=== PATIENT | female | born 1990 | race American Indian/Alaskan Native ===

== ENCOUNTER 2017-12-28 12:45 | Emergency (ER) | payer SELFPAY ==
[2017-12-28 12:52] VITALS: BP 123/76
[2017-12-28] MEDS ORDERED: MOTRIN PO ONE (13:52)
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
== END 2017-12-28 16:20 | disposition home or self-care (01) ==
LOC: ED 12:45
DX: M54.5 Low back pain (principal); M54.2 Cervicalgia
CPT/HCPCS: 72040; 72100; 99283

== ENCOUNTER 2018-05-09 12:12 | Emergency (ER) | payer SELFPAY ==
[2018-05-09 12:56] VITALS: BP 114/67
--- NOTE | 2018-05-09 13:27 | Emergency Department Report ---
ED Female HPI - General Chief complaint: Urogenital-Female Stated complaint: BLOOD IN URINE Time Seen by Provider: 05/09/18 13:24 Source: patient Mode of arrival: Ambulatory Limitations: No Limitations - History of Present Illness Initial comments: This is a 28-year-old patient here complaining that when she urinates she states she sees blood and it pringle when I ask her she said when she wipes there is some blood on the tissue and she is having some burning and this has been going on for 2 weeks and when she wipes to see blood has been going on for 3 days. Denies any back pain. Denies any fever or chills. Denies any nausea or vomiting. Last menstrual cycle was 04/23/2018. She denies any abdominal pain. MD Complaint: dysuria Onset/Timin -: week(s) Severity scale (0 -10): 0 Are you Now?: No Last Menstrual Period: 04/23/18 EDC: 01/28/19 Associated Symptoms: dysuria, hematuria. denies: vaginal discharge, vaginal bleeding, abdominal pain, nausea/vomiting, fever/chills, headaches, loss of appetite, rash, seizure, shortness of breath, syncope, weakness - Related Data Sexually active: No Previous Rx's Medication Instructions Recorded Last Taken Type Cyclobenzaprine [Flexeril] 10 mg PO TID PRN #10 tablet 12/28/17 Unknown Rx Ibuprofen [Motrin] 600 mg PO Q8H PRN #30 tablet 12/28/17 Unknown Rx Nitrofurantoin Monohyd/M-Cryst 100 mg PO Q12H 7 Days #14 capsule 05/09/18 Unknown Rx [Macrobid 100 mg Capsule] Phenazopyridine [Pyridium] 100 mg PO TID PRN #9 tab 05/09/18 Unknown Rx Allergies Allergy/AdvReac Type Severity Reaction Status Date / Time No Known Allergies Allergy Verified 05/09/18 12:52 ED Review of Systems ROS: Stated complaint: BLOOD IN URINE Other details as noted in HPI Constitutional: denies: chills, fever Respiratory: denies: cough, orthopnea, shortness of breath, SOB with exertion, stridor, wheezing Cardiovascular: denies: chest pain, palpitations, dyspnea on exertion, edema, syncope Gastrointestinal: denies: abdominal pain, nausea, vomiting, diarrhea, constipation, hematemesis, melena, hematochezia Genitourinary: dysuria, hematuria. denies: urgency, frequency, discharge, abnormal menses, dyspareunia Musculoskeletal: denies: back pain, joint swelling, arthralgia Skin: denies: rash, lesions Neurological: denies: headache, weakness ED Past Medical Hx - Past Medical History Previous Medical History?: No - Surgical History Past Surgical History?: No - Family History Family history: hypertension - Social History Smoking Status: Never Smoker Substance Use Type: None - Medications Home Medications: Home Medications Medication Instructions Recorded Confirmed Last Taken Type Cyclobenzaprine [Flexeril] 10 mg PO TID PRN #10 tablet 12/28/17 Unknown Rx Ibuprofen [Motrin] 600 mg PO Q8H PRN #30 tablet 12/28/17 Unknown Rx Nitrofurantoin Monohyd/M-Cryst 100 mg PO Q12H 7 Days #14 capsule 05/09/18 Unknown Rx [Macrobid 100 mg Capsule] Phenazopyridine [Pyridium] 100 mg PO TID PRN #9 tab 05/09/18 Unknown Rx ED Physical Exam - General Limitations: No Limitations General appearance: alert, in no apparent distress - Head Head exam: Present: atraumatic, normocephalic, normal inspection - Eye Eye exam: Present: normal appearance, PERRL, EOMI Pupils: Present: normal accommodation - ENT ENT exam: Present: normal exam, normal orophraynx, mucous membranes moist - Neck Neck exam: Present: normal inspection, full ROM. Absent: tenderness, lymphadenopathy - Respiratory Respiratory exam: Present: normal lung sounds bilaterally. Absent: respiratory distress, chest wall tenderness, accessory muscle use - Cardiovascular Cardiovascular Exam: Present: regular rate, normal rhythm, normal heart sounds. Absent: systolic murmur, diastolic murmur - GI/Abdominal GI/Abdominal exam: Present: soft, normal bowel sounds. Absent: distended, tenderness, guarding, rebound, rigid, mass, bruit, pulsatile mass - Extremities Exam Extremities exam: Present: normal inspection, full ROM, normal capillary refill , other (no clubbing, cyanosis or edema. +2 pulses to all extremities and no neurovascular compromise). Absent: tenderness, pedal edema, joint swelling, calf tenderness - Back Exam Back exam: Present: normal inspection, full ROM. Absent: tenderness, CVA tenderness (R), CVA tenderness (L), muscle spasm, paraspinal tenderness, vertebral tenderness, rash noted - Neurological Exam Neurological exam: Present: alert, oriented X3 - Psychiatric Psychiatric exam: Present: normal affect, normal mood - Skin Skin exam: Present: warm, dry, intact, normal color. Absent: rash ED Course Vital Signs 05/09/18 12:52 Temperature 98.1 F Pulse Rate 98 H Respiratory 16 Rate Blood Pressure 114/67 O2 Sat by Pulse 98 Oximetry - Reevaluation(s) Reevaluation #1: 05/09/18 14:02 Patient is stable and awaiting in urinalysis results. Reevaluation #2: 05/09/18 15:56 05/09/18 15:56 Patient Rocephin 1 g IM in the emergency room for acute cystitis with hematuria. She had no adverse reaction 05/09/18 15:56 ED Medical Decision Making - Lab Data Lab Results 05/09/18 Range/Units 14:20 Urine Color Yellow (Yellow) Urine Turbidity Clear (Clear) Urine pH 6.0 (5.0-7.0) Ur Specific [place] 1.017 (1.003-1.030) Urine Protein 30 mg/dl (Negative) mg/dL Urine Glucose (UA) Neg (Negative) mg/dL Urine Ketones Neg (Negative) mg/dL Urine Blood Mod (Negative) Urine Nitrite Neg (Negative) Urine Bilirubin Neg (Negative) Urine Urobilinogen 4.0 (<2.0) mg/dL Ur Leukocyte Esterase Lg (Negative) Urine WBC (Auto) > 182.0 H (0.0-6.0) /HPF Urine RBC (Auto) 66.0 (0.0-6.0) /HPF U Epithel Cells (Auto) 6.0 (0-13.0) /HPF Urine WBC Clumps 2+ /HPF Urine Mucus Few /HPF Urine HCG, Qual Negative (Negative) Urine culture pending - Medical Decision Making This is a 28-year-old female who is here complaining of vaginal irritation, urine burning for 2 weeks and 3 days ago she noted some blood on tissue when she wiped. She is here to be evaluated. Patient was examined by me and urinalysis showed patient with acute cystitis with hematuria. She has large leukocyte esterase, large white blood cell, negative bacteria, positive blood and 30 protein. Urine culture sent and pending. Patient abdominal exam was normal and she had no CVA tenderness. I discuss urinalysis result with patient. Her test is negative and this was also discussed that she voiced understanding. 1: Acute cystitis with hematuria-patient given Rocephin 1 g IM in emergency room and her urinalysis is positive, culture sent and she'll be sent home on Macrobid 2: Dysuria-patient will be sent home on Pyridium. Patient educated on urinalysis results, diagnosis, medication, treatment plan and follow-up and she voiced understanding. Patient discharged home in stable condition to follow up with primary care physician in 3-5 days. Her vital signs are stable and she is a febrile. Patient able to tolerate fluids in emergency room. Discharged home in stable condition with prescription for Macrobid and Pyridium and I told her if her condition worsens or return to the emergency room and she voiced understanding. - Differential Diagnosis , UTI Critical care attestation.: If time is entered above; I have spent that time in minutes in the direct care of this critically ill patient, excluding procedure time. ED Disposition Clinical Impression: Acute cystitis with hematuria, Dysuria Disposition: DC-01 TO HOME OR SELFCARE Is pt being admited?: No Does the pt Need Aspirin: No Condition: Stable Instructions: Urinary Tract Infection in Women (ED), Dysuria (ED) Additional Instructions: Please of the primary care physician in 3 days. If you do not have a primary care physician he can follow up at [facility]. Take antibiotics as prescribed Increase her fluid intake to 2-3 L of water/cranberry juice to eat daily If he develops fever, chills, nausea and vomiting, back pain and abdominal pain and if his symptoms are not better within 72 hours return to the emergency room. Prescriptions: Nitrofurantoin Monohyd/M-Cryst [Macrobid 100 mg Capsule] 100 mg PO Q12H 7 Days # 14 capsule Phenazopyridine [Pyridium] 100 mg PO TID PRN #9 tab PRN Reason: urinary burning Referrals: PRIMARY CARE,MD [Primary Care Provider] - 3-5 Days [facility] [Outside] - 3-5 Days Forms: Work/School Release Form(ED)
[2018-05-09 14:49] LABS: Bilirubin,Urine NEG (Negative); Blood,Urine MOD (Negative); Color,Urine Yellow (Yellow); Mucus,Urine FEW /HPF
[2018-05-09 14:51] LABS: WBC,Urine > 182.0 /HPF (0.0-6.0)
[2018-05-09 15:03] LABS: HCG Qualitative,Urine Negative (Negative)
[2018-05-09] MEDS ORDERED: XYLOCAINE 1% MPF 5 mL INFILTRATI ONE (15:05)
[2018-05-09] MEDS ORDERED: ROCEPHIN IM STA (15:05)
== END 2018-05-09 16:25 | disposition home or self-care (01) ==
LOC: ED 12:12
DX: N30.01 Acute cystitis with hematuria (principal)
CPT/HCPCS: 81001; 81025; 87086; 96372; 99283; J0696